=== PATIENT | male | born 1980 | race Caucasian/White ===

== ENCOUNTER 2017-01-12 09:35 | Emergency (ER) | payer SELFPAY ==
[~2017-01-12] VITALS: Ht 160 cm; Wt 63.8 kg
[~2017-01-12 09:35] MED LIST: AVELOX400 MG PO; Atarax,Vistaril PO; DEPAKOTE500 MG PO; DILANTIN100 MG PO; KEFLEX500 MG PO; Methadone PO; OxyCODONE PO; PAXIL40 MG PO; PREDNISONE20 MG PO; Tylenol Regular Stre PO; XANAX2 MG PO
[2017-01-12] MEDS ORDERED: BACTRIM,SEPT1 TABLET PO (13:18)
[2017-01-12 14:01] VITALS: BP 114/69
== END 2017-01-12 14:01 | disposition home or self-care (01) ==
LOC: EME 09:35
PROC: 0H9DXZZ Drainage of Right Lower Arm Skin, External Approach (ICD-10-PCS; principal; 2017-01-12)
DX: L02.413 Cutaneous abscess of right upper limb (principal); F11.10 Opioid abuse, uncomplicated; Z86.14 Personal history of Methicillin resistant Staphylococcus aureus infection
CPT/HCPCS: 99281; 99283

== ENCOUNTER 2017-02-26 07:13 | Emergency (ER) | payer SELFPAY ==
[~2017-02-26] VITALS: Ht 177.8 cm; Wt 70.0 kg
[~2017-02-26 07:13] MED LIST changes: +BACTRIM,SEPT1 TABLET PO
[2017-02-26 08:25] LABS: EOSINOPHIL (%) 1.1 % (0-5); EOSINOPHIL COUNT 0.1 K/uL (0-0.3); HEMATOCRIT 32.1 % (38.0-50.0); IMMATURE GRANULOCYTE (%) 0.2 % (0.0-0.7); INSTRUMENT ABS NEUTROPHIL CT 6.4 K/uL; LYMPHOCYTE COUNT 1.1 K/uL (1.0-2.8); MCV 87.7 FL (86-99); MEAN PLAT.VOLUME 9.3 uM^3 (9.0-12.4); MONOCYTE (%) 7.2 % (3-12); MONOCYTE COUNT 0.6 K/uL (0-0.8); NEUTROPHIL (%) 78.1 % (45-76); NEUTROPHIL COUNT 6.4 K/uL (1.8-6.4); PLATELET COUNT 262 K/uL (156-360); RBC DIS.WIDTH-CV 12.4 % (11.8-14.6); RBC DIS.WIDTH-SD 40.4 % (39-53); RED BLOOD COUNT 3.66 M/uL (4.00-5.50); WHITE BLOOD COUNT 8.2 K/uL (4.1-10.2)
[2017-02-26 08:58] LABS: CHLORIDE 108 mEq/L (99-109); POTASSIUM 3.8 mEq/L (3.7-5.4); SODIUM 138 mEq/L (136-147)
[2017-02-26 09:00] LABS: GLUCOSE 101 mg/dL (70-99)
[2017-02-26 09:01] LABS: ANION GAP 8 MEQ/L (2-14)
[2017-02-26 09:03] LABS: GFR ESTIMATE (CALCULATED) > 59 mL/min/; SERUM ETHYL ALCOHOL < 10 mg/dL
[2017-02-26 09:04] LABS: UREA NITROGEN (BUN) 13 mg/dL (9-23)
[2017-02-26 12:54] VITALS: BP 104/65
== END 2017-02-26 12:56 | disposition home or self-care (01) ==
LOC: EME 07:13
PROVIDERS: Emergency Medicine
DX: T40.1X1A Poisoning by heroin, accidental (unintentional), initial encounter (principal); R41.82 Altered mental status, unspecified; Z88.1 Allergy status to other antibiotic agents; Z88.8 Allergy status to other drugs, medicaments and biological substances; F11.10 Opioid abuse, uncomplicated
CPT/HCPCS: 71010; 80048; 81003; 85025; 93005; 94799; 99281; 99285; G0480; J2310

== ENCOUNTER 2017-12-13 17:14 | Emergency (ER) | payer SELFPAY ==
[~2017-12-13] VITALS: Ht 162.6 cm; Wt 73.2 kg
[2017-12-13] MEDS ORDERED: NYSTATIN15 GM TP (19:59)
[2017-12-13] MEDS ORDERED: KENALOG,ARISTOC15 G1 TP (19:59)
[2017-12-13] MEDS ORDERED: LIDOCAINE20 MG/1 M5 PO (19:59)
[2017-12-13] MEDS ORDERED: VALTREX1000 MG PO (19:59)
[2017-12-13] MEDS ORDERED: DIFLUCAN150 MG PO (19:59)
[2017-12-13 20:09] VITALS: BP 128/69
== END 2017-12-13 20:10 | disposition home or self-care (01) ==
LOC: EME 17:14
DX: B00.1 Herpesviral vesicular dermatitis (principal); B37.0 Candidal stomatitis; N48.1 Balanitis; Z88.1 Allergy status to other antibiotic agents
CPT/HCPCS: 80048; 85027; 99281; 99283

== ENCOUNTER 2018-01-09 16:59 | Inpatient (IN) | payer OTHER ==
[~2018-01-09] VITALS: Ht 162.6 cm; Wt 67.7 kg
[~2018-01-09 16:59] MED LIST changes: +DIFLUCAN150 MG PO; +KENALOG,ARISTOC15 G1 TP; +LIDOCAINE20 MG/1 M5 PO; +NYSTATIN15 GM TP; +VALTREX1000 MG PO
[2018-01-09 20:01] LABS: HEMATOCRIT 37.2 % (38.0-50.0); MCH 30.6 PG (29.0-34.0); MCHC 34.9 G/DL (30.0-36.0); MCV 87.5 FL (86-99); PLATELET COUNT 312 K/uL (156-360); RBC DIS.WIDTH-CV 12.1 % (11.8-14.6); RED BLOOD COUNT 4.25 M/uL (4.00-5.50); WHITE BLOOD COUNT 12.2 K/uL (4.1-10.2)
[2018-01-09 20:10] LABS: CHLORIDE 104 mEq/L (99-109); POTASSIUM 4.2 mEq/L (3.7-5.4); SODIUM 141 mEq/L (136-147)
[2018-01-09 20:11] LABS: GLUCOSE 84 mg/dL (70-99)
[2018-01-09 20:14] LABS: SERUM ETHYL ALCOHOL < 10 mg/dL
[2018-01-09 20:15] LABS: GFR ESTIMATE (CALCULATED) > 59 mL/min/ (58.99-99999)
[2018-01-09 20:17] LABS: UREA NITROGEN (BUN) 14 mg/dL (9-23)
[2018-01-09 20:18] LABS: SALICYLATE < 5.0 MG/DL (15-30)
[2018-01-09 20:19] LABS: ACETAMINOPHEN (TYLENOL) < 10 mcg/mL (10-30)
[2018-01-09] MEDS ORDERED: GABAPENTIN300 MG PO (20:50)
[2018-01-09] MEDS ORDERED: SUBOXONE 12 MG1 EACH SL (20:53)
[2018-01-09 21:20] LABS: AMPHETAMINE PRESUMPTIVE POSITIVE (500 ng/mL); BARBITURATES NEGATIVE (200 ng/mL); BENZODIAZEPINES NEGATIVE (150 ng/mL); BUPRENORPHINE NEGATIVE (10 ng/mL); COCAINE PRESUMPTIVE POSITIVE (150 ng/mL); METHADONE NEGATIVE (200 ng/mL); METHAMPHETAMINE PRESUMPTIVE POSITIVE (500 ng/mL); OPIATES (MORPHINE) PRESUMPTIVE POSITIVE (100 ng/mL); OXYCODONE NEGATIVE (100 ng/mL); PHENCYCLIDINE NEGATIVE (25 ng/mL); PROPOXYPHENE NEGATIVE (300 ng/mL); THC CANNABINOIDS NEGATIVE (50 ng/mL); TRICYCLIC ANTIDEPRESSANTS NEGATIVE (300 ng/mL)
[2018-01-09 22:35] VITALS: BP 92/55
[2018-01-09] MEDS ORDERED: PAIN RELIEF650 MG PO (22:42)
[2018-01-10 07:56] VITALS: BP 81/46
[2018-01-10 12:42] VITALS: BP 99/55
[2018-01-10 15:42] VITALS: BP 103/56
[2018-01-11 07:57] VITALS: BP 109/54
[2018-01-11 15:34] VITALS: BP 119/60
== END 2018-01-11 16:13 | disposition home or self-care (01) | DRG 897 ==
LOC: EME 16:59 → 1WEST 20:45 → EDOF 20:45 → ENRESERV 21:47 → 1WEST 22:26
PROVIDERS: Emergency Medicine
PROC: HZ2ZZZZ Detoxification Services for Substance Abuse Treatment (ICD-10-PCS; principal; 2018-01-09)
DX: F11.23 Opioid dependence with withdrawal (principal); T40.1X1A Poisoning by heroin, accidental (unintentional), initial encounter; F14.90 Cocaine use, unspecified, uncomplicated; F16.90 Hallucinogen use, unspecified, uncomplicated; F41.9 Anxiety disorder, unspecified; S62.634A Displaced fracture of distal phalanx of right ring finger, initial encounter for closed fracture; S70.311A Abrasion, right thigh, initial encounter; S30.811A Abrasion of abdominal wall, initial encounter; V03.00XA Pedestrian on foot injured in collision with car, pick-up truck or van in nontraffic accident, initial encounter; Y92.481 Parking lot as the place of occurrence of the external cause; Z88.1 Allergy status to other antibiotic agents
CPT/HCPCS: 70450; 71045; 73090; 73130; 74176; 80048; 84999; 85027; 90839; 93005; 97150 GO; 97165 GO; 99281; 99285; G0480; J0572; Q0177

== ENCOUNTER 2018-01-25 05:05 | Emergency (ER) | payer OTHER ==
[~2018-01-25] VITALS: Ht 162.6 cm; Wt 67.2 kg
[~2018-01-25 05:05] MED LIST changes: +GABAPENTIN300 MG PO; +PAIN RELIEF650 MG PO; +SUBOXONE 12 MG1 EACH SL
[2018-01-25 06:12] LABS: HEMATOCRIT 35.6 % (38.0-50.0); MCH 30.5 PG (29.0-34.0); MCHC 33.7 G/DL (30.0-36.0); MCV 90.6 FL (86-99); PLATELET COUNT 267 K/uL (156-360); RBC DIS.WIDTH-CV 12.4 % (11.8-14.6); RBC DIS.WIDTH-SD 41.4 % (39-53); RED BLOOD COUNT 3.93 M/uL (4.00-5.50); WHITE BLOOD COUNT 9.1 K/uL (4.1-10.2)
[2018-01-25 06:20] LABS: COCAINE PRESUMPTIVE POSITIVE (150 ng/mL); METHAMPHETAMINE NEGATIVE (500 ng/mL); OPIATES (MORPHINE) PRESUMPTIVE POSITIVE (100 ng/mL); PHENCYCLIDINE NEGATIVE (25 ng/mL); THC CANNABINOIDS NEGATIVE (50 ng/mL)
[2018-01-25 06:21] LABS: AMPHETAMINE NEGATIVE (500 ng/mL); BARBITURATES NEGATIVE (200 ng/mL); BENZODIAZEPINES NEGATIVE (150 ng/mL); BUPRENORPHINE NEGATIVE (10 ng/mL); METHADONE NEGATIVE (200 ng/mL); OXYCODONE NEGATIVE (100 ng/mL); PROPOXYPHENE NEGATIVE (300 ng/mL); TRICYCLIC ANTIDEPRESSANTS NEGATIVE (300 ng/mL)
[2018-01-25 06:28] LABS: APPEARANCE CLEAR ((CLEAR)); COLOR YELLOW ((YELLOW)); LEUKOCYTES NEGATIVE; NITRITE NEGATIVE; SPECIFIC GRAVITY 1.024 (1.000-1.030)
[2018-01-25 06:29] LABS: BILIRUBIN NEGATIVE; BLOOD NEGATIVE; GLUCOSE (STRIP) NEGATIVE; KETONES 5; PROTEIN (STRIP) 30; UCUL ADDED? NO; UROBILINOGEN 0.2 MG/DL (0.2-1.0)
[2018-01-25 06:36] LABS: CHLORIDE 104 mEq/L (99-109); SODIUM 142 mEq/L (136-147)
[2018-01-25 06:38] LABS: GLUCOSE 110 mg/dL (70-99)
[2018-01-25 06:41] LABS: SERUM ETHYL ALCOHOL < 10 mg/dL
[2018-01-25 06:42] LABS: CREATININE 1.1 mg/dL (0.6-1.3); GFR ESTIMATE (CALCULATED) > 59 mL/min/ (58.99-99999)
[2018-01-25 06:43] LABS: UREA NITROGEN (BUN) 15 mg/dL (9-23)
[2018-01-25 12:52] VITALS: BP 103/59
== END 2018-01-25 12:57 | disposition short-term general hospital (02) ==
LOC: EME 05:05
PROVIDERS: Emergency Medicine
DX: F41.9 Anxiety disorder, unspecified (principal); F32.9 Major depressive disorder, single episode, unspecified; R45.851 Suicidal ideations; F11.10 Opioid abuse, uncomplicated; F14.10 Cocaine abuse, uncomplicated; D64.9 Anemia, unspecified; F43.21 Adjustment disorder with depressed mood
CPT/HCPCS: 80048; 81003; 84999; 85027; 90837; 99281; 99285; G0480